=== PATIENT | female | born 1955 | race Caucasian/White ===

== ENCOUNTER 2020-12-30 05:30 | Outpatient (RCR) | payer MEDICARE, OTHER ==
[2020-12-25 10:05] VITALS: BP 142/88
[2020-12-25 10:45] LABS: BASOPHILS % (AUTO) 0 % (0-10); EOSINOPHILS # (AUTO) 0.1 10^3/uL (0.0-0.3); EOSINOPHILS % (AUTO) 2 % (0-10); HEMATOCRIT 44 % (35-52); HEMOGLOBIN 14.8 g/dL (11.5-16.0); LYMPHOCYTES # (AUTO) 2.8 10^3/uL (1.0-4.0); LYMPHOCYTES % (AUTO) 39 % (12-44); MEAN CORPUSCULAR HEMOGLOBIN 30 pg (25-34); MEAN CORPUSCULAR HGB CONC 34 g/dL (32-36); MEAN CORPUSCULAR VOLUME 88 fL (80-99); MONOCYTES # (AUTO) 0.6 10^3/uL (0.0-1.0); MONOCYTES % (AUTO) 8 % (0-12); NEUTROPHILS # (AUTO) 3.7 10^3/uL (1.8-7.8); NEUTROPHILS % (AUTO) 51 % (42-75); PLATELET COUNT 344 10^3/uL (130-400); WHITE BLOOD COUNT 7.3 10^3/uL (4.3-11.0)
[2020-12-25 10:46] LABS: BILIRUBIN,URINE NEGATIVE (NEGATIVE); CLARITY,URINE CLEAR; COLOR,URINE YELLOW; GLUCOSE, URINE (UA) NEGATIVE (NEGATIVE); KETONES,URINE NEGATIVE (NEGATIVE); LEUKOCYTE ESTERASE ,URINE NEGATIVE (NEGATIVE); NITRITE,URINE NEGATIVE (NEGATIVE); PH,URINE 6.5 (5-9); PROTEIN,URINE NEGATIVE (NEGATIVE)
--- NOTE | 2020-12-25 10:47 | Diagnostic Imaging Report ---
INDICATION: Preop for left knee surgery. EXAMINATION: PA and lateral views of the chest. FINDINGS: The heart size and vascularity are normal. Lungs are clear. There is no effusion. There is no acute bony abnormality. IMPRESSION: No acute abnormality is seen. Dictated by: Dictated on workstation # [id number]
[2020-12-25 11:02] LABS: BACTERIA,URINE NEGATIVE /HPF; SQUAMOUS EPITHELIAL CELL,UR RARE /HPF
[2020-12-25 11:06] LABS: INR 0.9 (0.8-1.4); PROTHROMBIN TIME PATIENT 12.5 SEC (12.2-14.7)
[2020-12-25 11:11] LABS: ERYTHROCYTE SEDIMENTATION RATE 5 MM/HR (0-30)
[2020-12-25 11:13] LABS: ALBUMIN 4.2 GM/DL (3.2-4.5); BILIRUBIN,TOTAL 0.5 MG/DL (0.1-1.0); CALCIUM 9.6 MG/DL (8.5-10.1); CREATININE SERUM 0.86 MG/DL (0.60-1.30); TOTAL PROTEIN 7.3 GM/DL (6.4-8.2)
[~2020-12-30] VITALS: Ht 160 cm; Wt 83.4 kg
[~2020-12-30 05:30] MED LIST: AMIT25TA9 PO; AMIT50TA3 PO; CALC-385 PO; CALC-823 PO; METO50TA15 PO; METO50TA2 PO; MV-M1TAB57 PO; POTA10TA36 PO; SIMV20TA26 PO; SIMV20TA3 PO; TRIA1TAB3 PO
== END 2020-12-30 09:20 | disposition home or self-care (01) ==
LOC: PREOP 05:30
PROVIDERS: ATTEND Orthopaedic Surgery
DX: Z01.818 Encounter for other preprocedural examination (principal); M17.12 Unilateral primary osteoarthritis, left knee; R53.83 Other fatigue; Z20.822 Contact with and (suspected) exposure to COVID-19; Z11.2 Encounter for screening for other bacterial diseases
CPT/HCPCS: 36415; 71046; 80053; 81000; 85025; 85610; 85652; 86850; 86900; 86901; 87081; 87635

== ENCOUNTER 2021-01-01 06:00 | Inpatient (IN) | payer MEDICARE, OTHER ==
--- NOTE | 2020-12-25 13:34 | HISTORY AND PHYSICAL ---
DATE OF SERVICE: ADMISSION HISTORY AND PHYSICAL DATE OF ADMISSION, DATE OF SURGERY, DATE OF SERVICE: 01/01/2021. This will be for regular inpatient admission on 01/01/2021 for left total knee arthroplasty. The patient will require regular inpatient admission due to need for pain management, physical therapy and comorbidities. HISTORY: The patient is a 65-year-old female with long-standing progressive left knee pain. She reports that she has undergone treatment with injections and anti-inflammatories as well as activity modifications without relief. Radiographs reveal a complete loss of medial and patellofemoral joint spaces. Due to functional impairment and failure to improve with conservative measures, the patient has elected to proceed with surgical intervention. REVIEW OF SYSTEMS: No chest pain, no shortness of breath, no dysuria. PAST MEDICAL HISTORY: Hypertension. PAST SURGICAL HISTORY: Left ankle and left knee scope, right knee scope, breast reduction. FAMILY HISTORY: Noncontributory. PRIMARY CARE PROVIDER: Dr. Rothman. MEDICATIONS: Amitriptyline, triamterene, potassium, calcium, metoprolol, simvastatin. ALLERGIES: SULFA. SOCIAL HISTORY: The patient denies alcohol and tobacco use. PHYSICAL EXAMINATION: GENERAL: The patient is well developed, well nourished, in no acute distress. HEENT: Normocephalic, atraumatic. Pupils are equal, round and reactive to light. Oropharynx is clear. NECK: Supple, no lymphadenopathy. LUNGS: Clear to auscultation bilaterally. HEART: Regular rate and rhythm. ABDOMEN: Soft, nontender, nondistended. EXTREMITIES: The patient ambulates with an antalgic gait on the left, small varus alignment. She has a slight effusion. There is no erythema or warmth. She is tender along her medial joint line, has pain medially with Effie's. She also has patellofemoral crepitus and pain with patellar loading. IMPRESSION: Left knee osteoarthritis, unresponsive to conservative measures. PLAN: Left total knee arthroplasty. The risks, benefits, options, ramifications and recovery were discussed at length with the patient. She understands and wishes to proceed. Job ID: [id number] DocumentID: [id number] Dictated Date: 12/16/2020 11:04:56 Property Administrator Date: 12/16/2020 11:23:46 Dictated By: MACARIO COELHO MD
[~2021-01-01] VITALS: Ht 160 cm; Wt 83.4 kg
[2021-01-01] VITALS (11 sets, daily range): BP systolic 92–145; BP diastolic 53–87
[~2021-01-01 06:00] MED LIST changes: -POTA10TA36 PO; +POTA10TA37 PO
[2021-01-01] MEDS ORDERED: CEFUROXIME 1.5 GM/15 ML (ZINACEF) VIAL IM ONE (06:15)
[2021-01-01] MEDS: LACTATED RINGERS 1,000 ML IV PRN ×2 (06:24→07:45)
[2021-01-01] MEDS ORDERED: fentaNYL INJ 100 MCG/2 ML AMP ONE (06:31)
[2021-01-01] MEDS ORDERED: MIDAZOLAM 2 MG/2 ML (VERSED) VIAL ONE (06:31)
[2021-01-01] MEDS ORDERED: LIDOCAINE PF 2% 5 ML (XYLOCAINE) VIAL ONE (06:31)
[2021-01-01] MEDS ORDERED: BUPIVACAINE 0.25% 30 ML (SENSORCAINE) VIAL ONE (06:31)
[2021-01-01] MEDS ORDERED: diphenhydrAMINE 50 MG/ML INJ (BENADRYL) IVP PRN (07:15)
[2021-01-01] MEDS ORDERED: NALOXONE 0.4 MG/ML 1 ML (NARCAN) VIAL IV PRN (07:15)
[2021-01-01] MEDS ORDERED: morphine PCA 100 MG/100 ML BAG IV PRN (07:15)
[2021-01-01] MEDS ORDERED: ONDANSETRON 4 MG/2 ML (SDV) Z0FRAN IVP PRN ×2 (07:15→09:15)
--- NOTE | 2021-01-01 07:33 | Progress Note-Pre Operative ---
Pre-Operative Progress Note H&P Reviewed The H&P was reviewed, patient examined and no changes noted. Date Seen by Provider: Jan 01, 2021 Time Seen by Provider: 07:20 Date H&P Reviewed: Jan 01, 2021 Time H&P Reviewed: 07:11 Pre-Operative Diagnosis: left knee primary osteoarthritis MACARIO COELHO MD Jan 01, 2021 07:33
--- NOTE | 2021-01-01 07:34 | Progress Note-Post Operative ---
Post-Operative Progess Note Surgeon (s)/Pelt Shearer (s) Surgeon MACARIO COELHO MD Pelt Shearer: Reynaldo Mcguire Pre-Operative Diagnosis left knee primary osteoarthritis Post-Operative Diagnosis left knee primary osteoarthritis Procedure & Operative Findings Date of Procedure 01/01/21 Procedure Performed/Findings left total knee arthroplasty Anesthesia Type GETA Estimated Blood Loss Estimated blood loss (mL): minimal Specimens/Packing Specimens Removed none Packing: none MACARIO COELHO MD Jan 01, 2021 07:33
--- NOTE | 2021-01-01 07:35 | D/C HH Face to Face Order ---
D/C Face to Face Orders Reconcile Patient Problems Problems Reviewed?: Yes Instructions for Patient Via [facility] [employer], Patient Instructions/FollowUp: three weeks Physician to follow Patient: three weeks Discharge Diet for Home: Regular Diet Patient Data-Allergies,Ht & Wt Patient Allergies: Coded Allergies: Sulfa(Sulfonamide Antibiotics) (Unverified Allergy, Mild, 05/25/11) Height (Feet): 5 Height (Inches): 2.00 Weight (Pounds): 186 Home Health Need/Face to Face Date of Face to Face: Jan 01, 2021 Clinical Findings: Muscle weakness, Pain with ambulation, Unsteady gait I have seen Pt [id number]: Yes Discharged To: Home Diagnosis/Conditions: left total knee arthroplasty Patient is Homebound due to: Muscle weakness, Pain w/ambulation Homebound Status Due to the above stated illness, injury or surgical procedure (medical condition or diagnosis) and associated clinical findings, the patient is homebound because of his/her inability to leave home except with aid of a supportive device and/or person AND leaving the home requires a considerable and taxing effort or is medically contraindicated. Pt req the following assistanc: Walker Home Health Nursing Orders Home Health Services Order: Physical Therapy-Evaluate & Treat DC left knee aram and apply steristrips 01/15/21 Home Health Infusion Therapy Line Start Date: Jan 01, 2021 Therapy Orders Therapy Orders: Physical Therapy, PT to assess for OT Therapy Specific Orders: Eval assistive deivces, Teach enviro modifications/safety, Gait training, Increase strength/endurance, Provider maintenance therapy, Restore ROM Certify Stmt I certify that this patient is under my care and that I, a nurse practitioner or a physician; a accounting assistant working with me, had a face to face encounter that - meets the physician face to face encounter requirements with this patient as dated. MACARIO COELHO MD Jan 01, 2021 07:35
[2021-01-01] MEDS ORDERED: INTRA-ARTICULAR IU ONE ×5 (08:00)
[2021-01-01] MEDS ORDERED: proPOfol 200 MG/20 ML (DIPRIVAN) VIAL IV ONE (08:06)
[2021-01-01] MEDS ORDERED: GLYCOPYRROLATE 0.2 MG/ML (ROBINUL) 2 ML VIAL ONE (08:06)
[2021-01-01] MEDS ORDERED: SEVOFLURANE (ULTANE) 15 ML INHAL SOLN ONE (08:57)
[2021-01-01] MEDS ORDERED: TRANEXAMIC ACID 100 MG/ML 10 ML INJECTION ONE (08:58)
[2021-01-01] MEDS ORDERED: HYDROmorphone 2 MG/ML VIAL (DILAUDID) IV ONE (09:15)
[2021-01-01] MEDS ORDERED: morphine INJ 10 MG/ML 1ML (SYR OR VIAL) IVP ONE (09:15)
--- NOTE | 2021-01-01 09:35 | Diagnostic Imaging Report ---
INDICATION: Left knee arthroplasty. FINDINGS: Two views of the left knee show post operative changes of total joint arthroplasty. There is satisfactory alignment. No fracture is seen. There is no unsuspected foreign body. IMPRESSION: Satisfactory post left knee arthroplasty. Dictated by: Dictated on workstation # [id number]
[2021-01-01] MEDS: SENNA W/DOCUSATE (SENOKOT S) TABLET PO SCH ×2 (10:22→21:46)
[2021-01-01] MEDS: NS IV 1000 ML 1,000 ML IV SCH ×2 (10:37→23:44)
--- NOTE | 2021-01-01 13:07 | Consultation - Hospitalist ---
HPI History of Present Illness: HPI/Chief Complaint Chuyita Amin is a 65 year old female with PMH HTN, HLD, obesity, osteoarthritis of the knee, who presented for left total knee arthoplasty. Dr. Haile performed her surgery this morning 01/01. Upon my exam she is doing well. She has no complaints or concerns. She feels like her normal self. She is still in bed but is about to work with therapy. Source: patient Exam Limitations: no limitations Date Seen 01/01/21 Attending Physician Roge Haile MD PCP Radha Rothman MD Referring Physician Date of Admission Jan 01, 2021 at 06:00 Home Medications & Allergies Home Medications Reviewed patient Home Medication Reconciliation performed by pharmacy medication reconciliations i&c technician and/or nursing. Patients Allergies have been reviewed. Allergies Allergies Coded Allergies Sulfa(Sulfonamide Antibiotics) (Unverified Allergy, Mild, 05/25/11) Past Opgvokr-Wpdimp-Ajwnds Hx Patient Social History Tobacco Use?: No Smoking Status: Never a Smoker Substance use?: No Alcohol Use?: No Pt feels they are or have been: No Immunizations Up To Date First/Initial COVID19 Vaccinat: yes Second COVID19 Vaccination Aayush: yes Seasonal Allergies Seasonal Allergies: No Current Status status: No Advance Directives: No Communicates: Verbally Primary Language: Mauritanian Preferred Spoken Language: Mauritanian Is interpretation needed?: No Past Medical History Currently Using CPAP: No Currently Using BIPAP: No Hypertension Blood Disorders: No Family Medical History No Pertinent Family Hx Review of Systems Constitutional: no symptoms reported EENTM: no symptoms reported Respiratory: no symptoms reported Cardiovascular: no symptoms reported Gastrointestinal: no symptoms reported Genitourinary: no symptoms reported Musculoskeletal: no symptoms reported Skin: no symptoms reported Psychiatric/Neurological: No Symptoms Reported Physical Exam Physical Exam Vital Signs Vital Signs - First Documented Capillary Refill : Height, Weight, BMI Height: 5'2.00" Weight: 186lbs. oz. 84.359409si; 32.57 BMI Method: General Appearance: No Apparent Distress, Obese HEENT: PERRL/EOMI, Pharynx Normal Neck: Normal Inspection, Supple Respiratory: Normal Breath Sounds, No Respiratory Distress Cardiovascular: Regular Rate, Rhythm, No Edema Gastrointestinal: Normal Bowel Sounds, Non Tender, Soft Extremity: Normal Inspection, Non Tender, No Pedal Edema Neurologic/Psychiatric: Alert, Oriented x3, No Motor/Sensory Deficits, Normal Mood/Affect Skin: Normal Color, Warm/Dry Results Results/Procedures Labs Patient resulted labs reviewed. Assessment/Plan Assessment and Plan Assess & Plan/Chief Complaint s/p total knee arthroplasty Left knee primary osteoarthritis Zaf[place] primary s/p TKA 01/01 Bowel regimen Pain regimen Incentive spirometry PT/OT HTN HLD Obesity Continue home meds once med rec completed DVT prophylaxis: Lovenox Thank you for the consult. Please contact the hospitalist delivery professional with any questions or concerns. We will continue to follow as needed. Diagnosis/Problems Diagnosis/Problems (1) S/P total knee arthroplasty Status: Acute Qualifiers: Laterality: left Qualified Codes: Z96.652 - Presence of left artificial knee joint (2) Osteoarthritis of left knee Status: Chronic Qualifiers: Osteoarthritis type: primary Qualified Codes: M17.12 - Unilateral primary osteoarthritis, left knee (3) HTN (hypertension) Status: Chronic (4) HLD (hyperlipidemia) Status: Chronic (5) Obesity Status: Chronic TALISHA CESAR MD Jan 01, 2021 13:07
--- NOTE | 2021-01-01 13:30 | Physical Therapy Evaluation ---
PT Evaluation-General Medical Diagnosis Admission Date Jan 01, 2021 at 06:00 Medical Diagnosis: Left TKA Onset Date: Jan 01, 2021 Therapy Diagnosis Therapy Diagnosis: Gait deficit, strength deficit Height/Weight Height (Feet): 5 Height (Inches): 2.00 Weight (Pounds): 186 Precautions Precautions/Isolations: Fall Prevention Weight Bear Status Left Lower Extremity: Left Weight Bearing/Tolerated Referral Physician: Dr. Haile Reason for Referral: Evaluation/Treatment Social History Home: Single Level Current Living Status: Spouse Entry Into Home: Stairs With Railing PT Steps Into Home: 1 Prior Prior Level of Function SCALE: Activities may be completed with or without assistive devices. 4-Cobatfmita-qscbuuu completes the activity by him/herself with no assistance from a helper. 5-Set-up or Clean-up Assistance-helper sets up or cleans up; patient completes activity. [place] assists only prior to or following the activity. 4-Supervision or Touching Assistance-helper provides verbal cues and/or touching/steadying and/or contact guard assistance as patient completes activity. Assistance may be provided throughout the activity or intermittently. 3-Partial/Moderate Assistance-helper does LESS THAN HALF the effort. [place] lifts, holds or supports trunk or limbs, but provides less than half the effort. 2-Substantial/Maximal Assistance-helper does MORE THAN HALF the effort. [place] lifts or holds trunk or limbs and provides more than half the effort. 6-Jprqidkdm-xyorlz does ALL the effort. Patient does none of the effort to complete the activity. Or, the assistance of 2 or more helpers is required for the patient to complete the activity. If activity was not attempted, code reason: 7-Patient Refused. 9-Not Applicable-not attempted and the patient did not perform the activity before the current illness, exacerbation or injury. 10-Not Attempted due to Environmental Limitations-(lack of equipment, weather restraints, etc.). 88-Not Attempted due to Medical Conditions or Safety Concerns. Bed Mobility: 6 Transfers (B,C,W/C): 6 Gait: 6 Stairs: 6 Indoor Mobility (Ambulation): Independent Stairs: Independent Prior Devices Use: None Will need FWW for home use PT Evaluation-Current Subjective Patient lying supine in bed upon PT arrival, agreeable to treatment. Patient rates pain in left knee at 1/10 currently. Reports she needs to use the BR and used the BSC earlier. Objective Patient Orientation: Person, Place, Time, Situation Attachments: SCD's, Polar Pack, IV ROM/Strength ROM Lower Extremities Left knee flexion 70 degrees, extension 10 degrees from neutral AROM Right LE WFLs all planes AROM Strength Lower Extremities Left knee N/A; all hip and ankle planes 4-/5 bilaterally Sensory Vision: Functional Hearing: Functional Sensation Right Lower Extremit: Intact Sensation Left Lower Extremity: Intact Transfers Roll Left to Right (QC): 4 Sit to Lying (QC): 4 Lying to Sitting/Side of Bed(Q: 4 Sit to Stand (QC): 4 Chair/Eow-al-Pmyrw Xfer(QC): 4 Toilet Transfer (QC): 4 Gait Does the Patient Walk?: Yes Mode of Locomotion: Walk Anticipated Mode of Locomotion: Walk Distance: 20 feet x 2 Gait Assistive Device: FWW Balance Sitting Static: Good Sitting Dynamic: Good Standing Static: Fair Standing Dynamic: Fair Assessment/Needs Patient tolerated treatment well. Demonstrates CGA with all bed mobility and transfers. Patient ambulates 20 feet x 2 with FWW, with CGA and verbal cues for safety, progression, posture and use of FWW. Patient ambulates into the BR, requires min A for stand to sit to the toilet, however was able to stand with use of grab bars to transfer herself to the sink once she was finished. She did not alert this PT. Patient ambulates to the chair with FWW, with CGA. Patient in chair post treatment with all needs met, nursing notified, call light in reach and family in the room. Rehab Potential: Good PT Retirement Goals Retirement Goals PT Ship Fastener Goals Time Frame: Jan 14, 2021 Roll Left & Right (QC): 6 Sit to Lying (QC): 6 Lying-Sitting on Side/Bed(QC): 6 Sit to Stand (QC): 6 Chair/Cqq-ui-Akmzt Xfer(QC): 6 Toilet Transfer (QC): 6 Does the Patient Walk: Yes Walk 10 feet (QC): 6 Walk 50ft with 2 Turns (QC): 6 Walk 150 ft (QC): 6 1 Step (curb) (QC): 5 4 Steps (QC): 5 12 Steps (QC): 5 PT Plan Problem List Problem List: Activity Tolerance, Functional Strength, Safety, Balance, Gait, Transfer, Bed Mobility, ROM Treatment/Plan Treatment Plan: Continue Plan of Care Treatment Plan: Bed Mobility, Education, Functional Activity Adenike, Functional Strength, Gait, Safety, Therapeutic Exercise, Transfers Treatment Duration: Feb 12, 2021 Frequency: 11 times per week Estimated Hrs Per Day: .25 hour per day Patient and/or Family Agrees t: Yes Safety Risks/Education Patient Education: Gait Training, Transfer Techniques, Reviewed Precautions Teaching Recipient: Patient, Family Teaching Methods: Demonstration, Discussion Response to Teaching: Verbalize Understanding, Return Demonstration Discharge Recommendations Plan Home with spouse Time/GCodes Time In: 1250 Time Out: 1325 Total Billed Treatment Time: 35 Total Billed Treatment Visit, Gurwinder Koo, CPM, pads CHERYLE TURNER PT Jan 01, 2021 13:30
--- NOTE | 2021-01-01 13:43 | OPERATIVE REPORT ---
DATE OF SERVICE: PREOPERATIVE DIAGNOSIS: Left knee primary osteoarthritis. POSTOPERATIVE DIAGNOSIS: Left knee primary osteoarthritis. PROCEDURE: Left total knee arthroplasty. SURGEON: Roge Coelho MD TELEVISION PARTS TESTER: Reynaldo Mcguire, who assisted throughout the procedure and closed the incision. ANESTHESIA: General endotracheal plus femoral nerve block by Kalie Javier CRNA. TOURNIQUET TIME: Approximately 55 minutes at 300 mmHg. ESTIMATED BLOOD LOSS: Minimal. DRAINS: None. COMPLICATIONS: None. POSTOPERATIVE PLAN: Routine total knee arthroplasty protocol. The patient was transferred to the recovery room awake and in stable condition. MATERIALS: Microport cemented size 3 femur, cemented size 3 tibia with a 10 mm insert and cemented size 29 patellar button. STATEMENT OF MEDICAL NECESSITY: The patient is a 65-year-old female with longstanding progressive left knee pain. Radiographs revealed severe medial and patellofemoral arthrosis. She has undergone treatment with injections, anti-inflammatories and rest without relief. Due to functional impairment and failure to improve with conservative measures, the patient elected to proceed with surgical intervention. DESCRIPTION OF PROCEDURE: After risks and benefits of the procedure were discussed and questions were answered, an informed consent was signed and placed on the chart. The operative site was confirmed in the preoperative holding area initialed by the surgeon. The patient was then transferred to the operating room and after adequate levels of general endotracheal anesthetic were obtained, a timeout was called, confirming the operative site. Left lower extremity was prepped and draped in the usual sterile fashion. With the leg elevated and the knee flexed, tourniquet was inflated to 300 mmHg. Standard anterior approach was utilized. Hemostasis was obtained with cautery. A medial parapatellar arthrotomy was performed leaving 1 cm cuff on the patella for later reattachment. A portion of the fat pad was resected. Subperiosteal release was performed in the proximal medial tibia being careful to stay on the bony surface. The ACL was resected. The intramedullary guide was passed into the femur. The distal cutting block was placed and distal cut was made. Femur sized to a size 3. The 3 cutting block was placed parallel to the epicondylar axis and cuts were made from posterior to anterior. A subperiosteal release was then carefully performed on the posterior distal femur, being careful to stay on the bony surface. Intramedullary guide was then passed into the tibia. The cutting block was placed. The drop deyanira transected the intermalleolar axis and the cut was made. A 3 baseplate was placed and provided excellent coverage. Again, the drop deyanira transected the intermalleolar axis and this was prepared with the drill and keel punch. The femoral trial was placed and trochlear cut was made. A 10 mm insert was placed. The patella was prepared by using the freehand technique and resecting 10 mm off the undersurface. Peg guide was placed and peg holes were drilled. A 29 trial was placed. Full extension was easily obtained with the trials. 120 degrees of flexion was easily obtained with gravity. There was no anterior/posterior or medial/lateral laxity in flexion or extension. The patella tracked well. The trials were removed. The joint was irrigated with pulse lavage. Periarticular block was placed in the posterior capsule, medial and lateral retinaculum, extensor mechanism, subcutaneous tissues. The bone ends were irrigated and dried. The tibial baseplate was cemented into position. Excessive cement was removed. Superior surface was irrigated and dried and the polyethylene insert was placed. The distal femur was irrigated and dried and the femoral prosthesis was cemented into position. Excessive cement was removed. The knee was brought out in full extension until cement had cured. The undersurface of patella was irrigated and dried. The patellar button was cemented into position. Once cement had cured, the knee was taken through range of motion. Full extension was easily obtained under 20 degrees of flexion with gravity was easily obtained. The patella tracked well. There was no anterior/posterior or medial/lateral laxity in flexion or extension. The arthrotomy was closed with #2 Tevdek in wxwfup-sx-zewmn interrupted fashion. Knee was flexed. Patella tracked well with no undue tension at the repair site pulse lavage was used to irrigate the subcutaneous tissues using a total of 6 liters throughout the procedure. A 0 Vicryl was used for deep subcutaneous layer, 2-0 Vicryl for the superficial subcutaneous layer, aram were used on skin. A soft dressing was applied. The tourniquet was deflated and the patient was transferred to the recovery room awake and in stable condition. Job ID: [id number] DocumentID: [id number] Dictated Date: 01/01/2021 09:06:41 Corporate Recycling Manager Date: 01/01/2021 13:43:30 Dictated By: ROGE COELHO MD
--- NOTE | 2021-01-01 14:09 | Progress Note ---
Standard Progress Note Progress Notes/Assess & Plan Date Seen by a Provider: Jan 01, 2021 Time Seen by a Provider: 12:45 Progress/Assessment & Plan post op check no complaints radiographs HW well positioned without fracture LLE 2 Plus DP pilse with brisk cap refill intact DF AND PF of toes and ankle with intact sensation throughout s/p LTKA mobilize as able MACARIO COELHO MD Jan 01, 2021 14:09
[2021-01-01] MEDS: CEFUROXIME INJECTION 750 MG in NS (IVPB) 50 ML IV SCH ×2 (16:27→23:44)
[2021-01-02] VITALS: BP 110/74
[2021-01-02 04:00] VITALS: BP 127/78
[2021-01-02 06:10] LABS: HEMOGLOBIN 11.6 g/dL (11.5-16.0)
[2021-01-02] MEDS: MULTIVIT W/MINERALS TAB (THERAGRAN M) PO SCH (06:15)
--- NOTE | 2021-01-02 07:46 | Progress Note ---
Standard Progress Note Progress Notes/Assess & Plan Date Seen by a Provider: Jan 02, 2021 Time Seen by a Provider: 07:44 Progress/Assessment & Plan post op check no complaints radiographs HW well positioned without fracture LLE 2 Plus DP pilse with brisk cap refill intact DF AND PF of toes and ankle with intact sensation throughout s/p LTKA mobilize as able Final Diagnosis no complaints Vital Signs Date Time Temp Pulse Resp B/P (MAP) Pulse Ox O2 Delivery O2 Flow Rate FiO2 01/02/21 04:00 36.5 89 20 127/78 (94) 93 Room Air 01/02/21 00:00 36.4 89 20 110/74 (86) 92 Room Air 01/01/21 21:00 20 01/01/21 19:53 36.9 91 20 133/73 (93) 94 Room Air 01/01/21 19:50 Room Air 01/01/21 16:19 37.0 93 20 139/74 (95) 94 Room Air 01/01/21 12:00 36.1 76 16 134/69 (90) 94 Room Air 01/01/21 10:00 35.9 87 16 135/76 (95) 95 Room Air 01/01/21 09:56 Room Air 01/01/21 09:50 36.1 14 121/74 (90) 93 Room Air 01/01/21 09:45 Room Air 01/01/21 09:40 14 118/74 (89) 96 Room Air 01/01/21 09:30 14 119/71 (87) 96 OxyMask 2 01/01/21 09:20 15 105/71 (82) 97 OxyMask 4 01/01/21 09:20 OxyMask 4 01/01/21 09:10 15 104/68 (80) 96 OxyMask 6 01/01/21 09:03 36.2 15 92/53 (66) 95 OxyMask 6 01/01/21 09:03 OxyMask 6 I & O 01/02/21 06:59 Intake Total 4385 ml Output Total 2100 ml Balance 2285 ml Laboratory Tests Test 01/02/21 05:13 Range/Units Hemoglobin 11.6 11.5-16.0 g/dL Hematocrit 36 35-52 % LLE--dressing intact. No calf tenderness. Sensation intact throughout s/p LTKA PT/OT MACARIO COELHO MD Jan 02, 2021 07:46
[2021-01-02] MEDS: NS IV 1000 ML 1,000 ML IV SCH ×2 (08:12→14:30)
[2021-01-02] MEDS: ENOXAPARIN 30 MG/0.3 ML (LOVENOX) SYR SC SCH ×2 (08:30→19:45)
[2021-01-02] MEDS: oxyCODONE/APAP 5/325MG (PERCOCET 5) TABLET PO PRN ×3 (08:31→19:58)
[2021-01-02] MEDS: ASPIRIN E.C. 81 MG (ECOTRIN) TAB PO SCH (08:31)
[2021-01-02] MEDS: SENNA W/DOCUSATE (SENOKOT S) TABLET PO SCH ×2 (08:31→19:45)
[2021-01-02 08:50] VITALS: BP 138/79
--- NOTE | 2021-01-02 09:55 | Physical Therapy Daily Note ---
PT Daily Note-Current Subjective Patient agrees to PT. Pain Numeric Pain Scale: 3 Location: Left Location Body Site: Knee Pain Description: Acute Mental Status Patient Orientation: Normal For Age Attachments: IV Transfers SCALE: Activities may be completed with or without assistive devices. 4-Dzudlsvyju-amzmtvx completes the activity by him/herself with no assistance from a helper. 5-Set-up or Clean-up Assistance-helper sets up or cleans up; patient completes activity. [place] assists only prior to or following the activity. 4-Supervision or Touching Assistance-helper provides verbal cues and/or touching/steadying and/or contact guard assistance as patient completes activity. Assistance may be provided throughout the activity or intermittently. 3-Partial/Moderate Assistance-helper does LESS THAN HALF the effort. [place] lifts, holds or supports trunk or limbs, but provides less than half the effort. 2-Substantial/Maximal Assistance-helper does MORE THAN HALF the effort. [place] lifts or holds trunk or limbs and provides more than half the effort. 1-Gzjbxtpbx-rvkime does ALL the effort. Patient does none of the effort to complete the activity. Or, the assistance of 2 or more helpers is required for the patient to complete the activity. If activity was not attempted, code reason: 7-Patient Refused. 9-Not Applicable-not attempted and the patient did not perform the activity before the current illness, exacerbation or injury. 10-Not Attempted due to Environmental Limitations-(lack of equipment, weather restraints, etc.). 88-Not Attempted due to Medical Conditions or Safety Concerns. Sit to Stand (QC): 4 Weight Bearing Left Lower Extremity: Left Weight Bearing/Tolerated Gait Training Does the Patient Walk?: Yes Distance: 300' Walk 10 feet (QC): 4 Walk 50 ft with 2 Turns(QC): 4 Walk 150 ft (QC): 4 Gait Assistive Device: FWW slow, antalgic, functional gait sequence Exercises Seated Therapy Exercises: Ankle pumps, Long arc quads Seated Reps: 15 (2 sets) Standing: Heel/toe raises Standing Reps: 15 Assessment Patient improving with treatment plan and requests to remain in recliner. Polar pack in place. Increase activity as tolerated by patient. PT Mcc Goals Mcc Goals PT Floor Helper Goals Time Frame: Jan 14, 2021 Roll Left & Right (QC): 6 Sit to Lying (QC): 6 Lying-Sitting on Side/Bed(QC): 6 Sit to Stand (QC): 6 Chair/Xuf-zp-Teypy Xfer(QC): 6 Toilet Transfer (QC): 6 Does the Patient Walk: Yes Walk 10 feet (QC): 6 Walk 50ft with 2 Turns (QC): 6 Walk 150 ft (QC): 6 1 Step (curb) (QC): 5 4 Steps (QC): 5 12 Steps (QC): 5 PT Plan Treatment/Plan Treatment Plan: Continue Plan of Care Treatment Plan: Bed Mobility, Education, Functional Activity [place], Functional Strength, Gait, Safety, Therapeutic Exercise, Transfers Treatment Duration: Feb 12, 2021 Frequency: 11 times per week Estimated Hrs Per Day: .25 hour per day Patient and/or Family Agrees t: Yes Time/GCodes Time In: 751 Time Out: 814 Total Billed Treatment Time: 23 Total Billed Treatment 1 visit EX 9 min GT 14 min ANEGLA RIVERA PT Jan 02, 2021 09:55
--- NOTE | 2021-01-02 10:28 | Anesthesia-General Post-Op ---
General Patient Condition Mental Status/LOC: Same as Preop Cardiovascular: Satisfactory Nausea/Vomiting: Absent Respiratory: Satisfactory Pain: Controlled Complications: Absent Post Op Complications Complications None Follow Up Care/Instructions Patient Instructions None needed. Anesthesia/Patient Condition Patient Condition Patient is doing well, no complaints, stable vital signs, no apparent adverse anesthesia problems. No complications reported per nursing. ELIZA MCLEAN CRNA Jan 02, 2021 10:28
[2021-01-02 11:32] VITALS: BP 138/70
[2021-01-02] MEDS ORDERED: ASPI-1238 PO (11:49)
[2021-01-02] MEDS ORDERED: AMIT25TA9 PO (11:49)
[2021-01-02] MEDS ORDERED: POTA10TA PO (11:49)
[2021-01-02] MEDS ORDERED: METO50TA7 PO ×2 (11:49)
--- NOTE | 2021-01-02 12:20 | Occupational Therapy Eval ---
OT Evaluation-General/PLF Medical Diagnosis Admission Date Jan 01, 2021 at 06:00 Medical Diagnosis: Left TKA Onset Date: Jan 01, 2021 Therapy Diagnosis Therapy Diagnosis: n/a Height/Weight Height (Feet): 5 Height (Inches): 2.00 Weight (Pounds): 186 Precautions Precautions/Isolations: Fall Prevention, Standard Precautions Weight Bear Status Weight Bearing Restriction: Weight Bearing/Tolerated Location Restriction: L LE Referral Physician: Dr. Haile Referral Reason: Evaluation/Treatment Medical History Current History s/p L TKA. Per patient, she lives with spouse in single story home. Indep with adls and iadls. 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 Reviewed History: Yes Social History Home: Single Level Current Living Status: Spouse Entry Into Home: Stairs With Railing Steps Into Home: 1 ADL-Prior Level of Function SCALE: Activities may be completed with or without assistive devices. 0-Pvqiqydnbd-utnkpqe completes the activity by him/herself with no assistance from a helper. 5-Set-up or Clean-up Assistance-helper sets up or cleans up; patient completes activity. [place] assists only prior to or following the activity. 4-Supervision or Touching Assistance-helper provides verbal cues and/or touching/steadying and/or contact guard assistance as patient completes activity. Assistance may be provided throughout the activity or intermittently. 3-Partial/Moderate Assistance-helper does LESS THAN HALF the effort. [place] lifts, holds or supports trunk or limbs, but provides less than half the effort. 2-Substantial/Maximal Assistance-helper does MORE THAN HALF the effort. [place] lifts or holds trunk or limbs and provides more than half the effort. 5-Fublwjqds-qndelb does ALL the effort. Patient does none of the effort to complete the activity. Or, the assistance of 2 or more helpers is required for the patient to complete the activity. If activity was not attempted, code reason: 7-Patient Refused. 9-Not Applicable-not attempted and the patient did not perform the activity before the current illness, exacerbation or injury. 10-Not Attempted due to Environmental Limitations-(lack of equipment, weather restraints, etc.). 88-Not Attempted due to Medical Conditions or Safety Concerns. Self Care: Independent Functional Cognition: Independent DME/Equipment: Grab Bars, Shower DME/Equipment Comments Built in shower seat Drive Self: Yes OT Current Status Subjective Pt agreeable to eval, reports only minimal discomfort in L knee. Ice returned to knee post treatment. Appearance Pt left sitting in chair, all needs within reach, family in the room. Mental Status/Objective Patient Orientation: Person, Place, Time, Situation Attachments: IV Current Upper Extremity ROM WFL ADL-Treatment Upper Body Dressing (QC): 5 Lower Body Dressing (QC): 5 Toileting Hygiene (QC): 6 Pt sitting EOB at OT arrival, requests to use toilet. Able to stand and ambulate to/from bathroom with walker and SBA for management of IV pole. She was able to perform all steps of toileting and transfer without assist. She reports donning underwear/pants on just prior to OT arrival all by herself. Family confirms. She stood at sink for grooming tasks, no assist or cues required. Education OT Patient Education: Progress toward Goal/Update tx plan, Purpose of tx/functional activities, Reviewed precautions Teaching Recipient: Patient Teaching Methods: Discussion Response to Teaching: Return Demonstration OT Senior Care Goals Senior Care Goals 1=Demonstrate adherence to instructed precautions during ADL tasks. 2=Patient will verbalize/demonstrate understanding of assistive devices/modifications for ADL. 3=Patient will improve strength/tolerance for activity to enable patient to perform ADL's. OT Education/Plan Problem List/Assessment Assessment: No Skilled OT Needs ID'd Discharge Recommendations Plan/Recommendations: Discontinue OT Therapy Discharge Recommendati: Home & Family Treatment Plan/Plan of Care Treatment,Training & Education: Yes Patient would benefit from OT for education, treatment and training to promote independence in ADL's, mobility, safety and/or upper extremity function for ADL's. Plan of Care: ADL Retraining, Functional Mobility Treatment Duration: Jan 02, 2021 Frequency: 1 time per week Estimated Hrs Per Day: .25 hour per day Rehab Potential: Good Time/GCodes Start Time: 11:12 Stop Time: 11:22 Total Time Billed (hr/min): 10 Billed Treatment Time 1 visit Catherine Palomares OT Jan 02, 2021 12:20
--- NOTE | 2021-01-02 14:06 | Physical Therapy Daily Note ---
PT Daily Note-Current Subjective Patient reports slight increase in left knee pain. Mental Status Patient Orientation: Normal For Age Attachments: IV Transfers SCALE: Activities may be completed with or without assistive devices. 9-Mwshnekbwv-fyipasa completes the activity by him/herself with no assistance from a helper. 5-Set-up or Clean-up Assistance-helper sets up or cleans up; patient completes activity. [place] assists only prior to or following the activity. 4-Supervision or Touching Assistance-helper provides verbal cues and/or touching/steadying and/or contact guard assistance as patient completes activity. Assistance may be provided throughout the activity or intermittently. 3-Partial/Moderate Assistance-helper does LESS THAN HALF the effort. [place] lifts, holds or supports trunk or limbs, but provides less than half the effort. 2-Substantial/Maximal Assistance-helper does MORE THAN HALF the effort. [place] lifts or holds trunk or limbs and provides more than half the effort. 1-Jzpqfoliu-qrszby does ALL the effort. Patient does none of the effort to complete the activity. Or, the assistance of 2 or more helpers is required for the patient to complete the activity. If activity was not attempted, code reason: 7-Patient Refused. 9-Not Applicable-not attempted and the patient did not perform the activity before the current illness, exacerbation or injury. 10-Not Attempted due to Environmental Limitations-(lack of equipment, weather restraints, etc.). 88-Not Attempted due to Medical Conditions or Safety Concerns. Sit to Stand (QC): 6 Weight Bearing Left Lower Extremity: Left Weight Bearing/Tolerated Gait Training Distance: 600' Walk 10 feet (QC): 6 Walk 50 ft with 2 Turns(QC): 6 Walk 150 ft (QC): 6 Gait Assistive Device: FWW steady, reciprocal pattern Exercises Seated Therapy Exercises: Ankle pumps, Long arc quads Seated Reps: 15 (x 2 sets) Standing: Heel/toe raises Standing Reps: 15 Assessment Patient progressing with treatment plan. Plan dismissal in a.m. PT Halfway Goals Traffic Maintenance Officer Goals PT Halfway Goals Time Frame: Jan 14, 2021 Roll Left & Right (QC): 6 Sit to Lying (QC): 6 Lying-Sitting on Side/Bed(QC): 6 Sit to Stand (QC): 6 Chair/Jed-zb-Ioesd Xfer(QC): 6 Toilet Transfer (QC): 6 Does the Patient Walk: Yes Walk 10 feet (QC): 6 Walk 50ft with 2 Turns (QC): 6 Walk 150 ft (QC): 6 1 Step (curb) (QC): 5 4 Steps (QC): 5 12 Steps (QC): 5 PT Plan Treatment/Plan Treatment Plan: Continue Plan of Care Treatment Plan: Bed Mobility, Education, Functional Activity [place], Functional Strength, Gait, Safety, Therapeutic Exercise, Transfers Treatment Duration: Feb 12, 2021 Frequency: 11 times per week Estimated Hrs Per Day: .25 hour per day Patient and/or Family Agrees t: Yes Time/GCodes Time In: 1330 Time Out: 1353 Total Billed Treatment Time: 23 Total Billed Treatment 1 visit EX 9 min GT 14 min ANGELA RIVERA PT Jan 02, 2021 14:06
[2021-01-02] MEDS ORDERED: PATIENT MAY USE OWN MEDS, ALL MC SCH (15:30)
[2021-01-02] MEDS ORDERED: ASPIRIN E.C. 81 MG (ECOTRIN) TAB PO SCH (15:30)
[2021-01-02] MEDS ORDERED: CALCIUM CARB + VIT D 600 MG (CALCARB + D) TAB ONE (15:48)
[2021-01-02 16:00] VITALS: BP 125/61
[2021-01-02] MEDS: CALCIUM CARBONATE 600 MG (CALCARB) TAB PO SCH (17:35)
[2021-01-02 20:00] VITALS: BP 119/64
[2021-01-02] MEDS ORDERED: AMITRIPTYLINE 25 MG (ELAVIL) TAB PO SCH (20:00)
[2021-01-02] MEDS ORDERED: SIMvastatin 20 MG (ZOCOR) TAB PO SCH (21:00)
[2021-01-02] MEDS ORDERED: NON-FORMULARY MEDICATION 1 EA EA (Calcium Carbonate (Calcium) 500 MG) PO SCH (21:00)
[2021-01-02] MEDS ORDERED: meTOproloL SUCCINATE 50 MG (TOPROL XL) TAB PO SCH (21:00)
[2021-01-03 00:23] VITALS: BP 136/67
[2021-01-03] MEDS: oxyCODONE/APAP 5/325MG (PERCOCET 5) TABLET PO PRN ×4 (00:56→11:23)
--- NOTE | 2021-01-03 03:37 | DISCHARGE SUMMARY ---
DATE OF SERVICE: DIAGNOSES: 1. Left knee primary osteoarthritis. 2. Hypertension. PROCEDURE: Left total knee arthroplasty. SUMMARY: The patient is a 65-year-old female who was admitted the day of left total knee arthroplasty, which she underwent without complications. Postoperatively, she did very well. At time of discharge, her wound was clean and dry. She had no calf tenderness. Negative Homans sign. She was tolerating diet well and tolerating pain with oral pain medication. CONDITION AT DISCHARGE: Good. DISCHARGE DIET: Regular. FOLLOWUP: Followup is in three weeks. ACTIVITIES: Weightbearing as tolerated with a walker as needed. DISCHARGE MEDICATIONS: Home medications. One aspirin per day for four weeks and Percocet as needed for pain. Job ID: [id number] DocumentID: [id number] Dictated Date: 01/02/2021 18:14:06 Visitor Services Associate Date: 01/03/2021 03:37:15 Dictated By: MACARIO COELHO MD
[2021-01-03 03:42] VITALS: BP 132/63
[2021-01-03] MEDS: MULTIVIT W/MINERALS TAB (THERAGRAN M) PO SCH (05:36)
[2021-01-03 06:19] LABS: HEMOGLOBIN 10.6 g/dL (11.5-16.0)
[2021-01-03] MEDS ORDERED: morphine INJ 4 MG/ML 1 ML (VIAL/SYRINGE) IVP PRN (07:00)
--- NOTE | 2021-01-03 07:01 | Progress Note ---
Standard Progress Note Progress Notes/Assess & Plan Date Seen by a Provider: Jan 03, 2021 Time Seen by a Provider: 07:00 Progress/Assessment & Plan post op check no complaints radiographs HW well positioned without fracture LLE 2 Plus DP pilse with brisk cap refill intact DF AND PF of toes and ankle with intact sensation throughout s/p LTKA mobilize as able Final Diagnosis no complaints Vital Signs Date Time Temp Pulse Resp B/P (MAP) Pulse Ox O2 Delivery O2 Flow Rate FiO2 01/03/21 03:42 37.2 100 18 132/63 (86) 92 Room Air 01/03/21 00:23 36.6 103 18 136/67 (90) 96 Room Air 01/02/21 20:00 36.5 91 20 119/64 (82) 93 Room Air 01/02/21 19:45 Room Air 01/02/21 16:00 36.6 99 20 125/61 (82) 96 Room Air 01/02/21 11:32 36.4 102 20 138/70 (92) 93 Room Air 01/02/21 09:00 Room Air 01/02/21 08:50 36.5 95 18 138/79 (98) 93 Room Air I & O 01/03/21 06:59 Intake Total 2850 ml Output Total 2700 ml Balance 150 ml Laboratory Tests Test 01/03/21 05:12 Range/Units Hemoglobin 10.6 L 11.5-16.0 g/dL Hematocrit 32 L 35-52 % LLE--incision clean and dry. No calf tenderness. Neg Jayce's s/p LTKA doing well DC home after PT today MACARIO COELHO MD Jan 03, 2021 07:01
[2021-01-03] MEDS ORDERED: KCL 10 MEQ TAB (MICRO K) PO SCH (08:00)
[2021-01-03] MEDS: SENNA W/DOCUSATE (SENOKOT S) TABLET PO SCH (08:10)
[2021-01-03] MEDS: ASPIRIN E.C. 81 MG (ECOTRIN) TAB PO SCH (08:11)
[2021-01-03] MEDS: ENOXAPARIN 30 MG/0.3 ML (LOVENOX) SYR SC SCH (08:11)
[2021-01-03] MEDS: CALCIUM CARBONATE 600 MG (CALCARB) TAB PO SCH (08:19)
[2021-01-03 08:32] VITALS: BP 138/88
[2021-01-03] MEDS ORDERED: NON-FORMULARY MEDICATION 1 EA EA (Mv-Mn/Folic Acid/Calcium/Vit K (Women's 50 Plus Multivit PO SCH (09:00)
[2021-01-03] MEDS ORDERED: TRIAMTERENE/HCTZ 37.5-25 MG TAB PO SCH (09:00)
--- NOTE | 2021-01-03 10:26 | Physical Therapy Daily Note ---
PT Daily Note-Current Subjective Patient reports increase c/o left knee pain. Pain Numeric Pain Scale: 8 Location: Left Location Body Site: Knee Pain Description: Acute Comment: pain medication issued by RN Mental Status Patient Orientation: Normal For Age Transfers SCALE: Activities may be completed with or without assistive devices. 3-Wntvzradne-xmrtpjd completes the activity by him/herself with no assistance from a helper. 5-Set-up or Clean-up Assistance-helper sets up or cleans up; patient completes activity. [place] assists only prior to or following the activity. 4-Supervision or Touching Assistance-helper provides verbal cues and/or touching/steadying and/or contact guard assistance as patient completes activity. Assistance may be provided throughout the activity or intermittently. 3-Partial/Moderate Assistance-helper does LESS THAN HALF the effort. [place] lifts, holds or supports trunk or limbs, but provides less than half the effort. 2-Substantial/Maximal Assistance-helper does MORE THAN HALF the effort. [place] lifts or holds trunk or limbs and provides more than half the effort. 0-Rkewmdkiz-lndikt does ALL the effort. Patient does none of the effort to complete the activity. Or, the assistance of 2 or more helpers is required for the patient to complete the activity. If activity was not attempted, code reason: 7-Patient Refused. 9-Not Applicable-not attempted and the patient did not perform the activity before the current illness, exacerbation or injury. 10-Not Attempted due to Environmental Limitations-(lack of equipment, weather restraints, etc.). 88-Not Attempted due to Medical Conditions or Safety Concerns. Lying to Sitting/Side of Bed(Q: 6 Sit to Stand (QC): 6 Chair/Xdy-hy-Telgn Xfer(QC): 6 Toilet Transfer (QC): 6 Weight Bearing Left Lower Extremity: Left Weight Bearing/Tolerated Gait Training Does the Patient Walk?: Yes Distance: 500' Walk 10 feet (QC): 6 Walk 50 ft with 2 Turns(QC): 6 Walk 150 ft (QC): 6 Gait Assistive Device: FWW steady, reciprocal pattern/antalgic Exercises Supine Ex: Ankle pumps, Quad Set, Heel Slides, Straight leg raise Supine Reps: 15 (AAROM HS) Seated Therapy Exercises: Long arc quads Seated Reps: 15 Assessment Patient tolerates activity and has been instructed to be up independently in room and hallway. Nursing notified. Patient dismissing to home on this date with home health. PT Compliance Clerk Goals Senior Living Goals PT Senior Living Goals Time Frame: Jan 14, 2021 Roll Left & Right (QC): 6 Sit to Lying (QC): 6 Lying-Sitting on Side/Bed(QC): 6 Sit to Stand (QC): 6 Chair/Vmk-xe-Tyhht Xfer(QC): 6 Toilet Transfer (QC): 6 Does the Patient Walk: Yes Walk 10 feet (QC): 6 Walk 50ft with 2 Turns (QC): 6 Walk 150 ft (QC): 6 1 Step (curb) (QC): 5 4 Steps (QC): 5 12 Steps (QC): 5 PT Plan Treatment/Plan Treatment Plan: Discontinue PT Treatment Plan: Bed Mobility, Education, Functional Activity [place], Functional Strength, Gait, Safety, Therapeutic Exercise, Transfers Treatment Duration: Feb 12, 2021 Frequency: 11 times per week Estimated Hrs Per Day: .25 hour per day Patient and/or Family Agrees t: Yes Time/GCodes Time In: 806 Time Out: 829 Total Billed Treatment Time: 23 Total Billed Treatment 1 visit EX 8 min GT 15 min ANGELA RIVERA PT Jan 03, 2021 10:26
[2021-01-03] MEDS ORDERED: meTOproloL SUCCINATE 50 MG (TOPROL XL) TAB PO SCH (11:00)
[2021-01-03 11:40] VITALS: BP 138/88
== END 2021-01-03 11:40 | disposition home health service (06) | DRG 470 ==
LOC: 4TH 06:00 → SURG 06:01 → 4TH 09:17
PROVIDERS: ADMIT Orthopaedic Surgery; ATTEND Orthopaedic Surgery
PROC: 0SRD0J9 Replacement of Left Knee Joint with Synthetic Substitute, Cemented, Open Approach (ICD-10-PCS; principal; 2021-01-01 08:00)
DX: M17.12 Unilateral primary osteoarthritis, left knee (principal); I10 Essential (primary) hypertension; E78.5 Hyperlipidemia, unspecified; E66.9 Obesity, unspecified; Z68.32 Body mass index [BMI] 32.0-32.9, adult; Z88.2 Allergy status to sulfonamides
CPT/HCPCS: 36415; 73560; 85014; 85018; 86850; 86900; 86901; 94664